=== PATIENT | male | born 1955 | race African-American/Black ===

== ENCOUNTER 2017-01-19 07:04 | Inpatient (IN) | payer OTHER ==
[~2017-01-19] VITALS: Ht 180.3 cm; Wt 84.8 kg
[~2017-01-19 07:04] MED LIST: ALBU18HF2 IH; ASPI-1035 PO; ATOR10TA PO; CARI350T PO; COR25 PO; FLUT1DIS5 IH; FURO20TA PO; Isosorb Dinit/Hydralazine Hcl PO; LEVIMIR SUBCUT; Lisinopril PO; METF-246 PO; METH4TAB17 PO; RIVA20TA PO; TIMO5DRO27 OP
[2017-01-19] MEDS ORDERED: MORPHINE SULFATE 4 MG/ML CPJ (NOT FOR IM USE) IV STA (07:21)
[2017-01-19] MEDS ORDERED: ONDANSETRON HCL 4MG/2ML VIAL IV STA (07:21)
[2017-01-19] MEDS ORDERED: NITROGLYCERIN OINT 1GM/INCH UDPKT TD ONE (07:30)
[2017-01-19] MEDS ORDERED: FUROSEMIDE 40MG/4ML VIAL IVP ONE (07:30)
[2017-01-19 07:40] LABS: BASOPHILS % 0.3 % (0.0-2.0); DIFFERENTIAL COMMENT 0; EOSINOPHILS % 1.1 % (0.0-5.0); HEMATOCRIT. 34.9 % (42.0-52.0); HEMOGLOBIN. 10.9 g/dL (14.0-18.0); LYMPHOCYTES % 21.6 % (20.0-50.0); MEAN CORPUSCULAR HEMOGLOBIN 23.3 pg (28.0-32.0); MEAN CORPUSCULAR HGB CONC 31.2 g/dL (31.0-37.0); MEAN CORPUSCULAR VOLUME 74.7 fL (80.0-94.0); MEAN PLATELET VOLUME 7.4 fl (7.4-10.4); MONOCYTES % 7.8 % (2.0-8.0); NEUTROPHILS % 69.2 % (40.0-76.0); PLATELET 321 x1000/uL (130-400); RED BLOOD CELL COUNT 4.67 mill/uL (4.7-6.1); RED CELL DISTRIBUTION WIDTH 20.3 % (11.6-14.6); WHITE BLOOD COUNT 7.5 x1000/uL (4.5-11.0)
[2017-01-19 07:44] LABS: INR 1.7; PARTIAL THROMBOPLASTIN TIME 29.8 sec (24.0-34.0); PROTHROMBIN TIME 17.3 sec
[2017-01-19 07:51] LABS: ALANINE AMINOTRANSFERASE 24 IU/L (13-61); ANION GAP 12; CALCIUM 8.5 mg/dL (8.5-10.1); CARBON DIOXIDE 32 mEq/L (21-32); CHLORIDE 99 mEq/L (98-107); CREATINE KINASE 49 IU/L (39-308); CREATINE KINASE MB FRACTION 0.9 ng/mL (0.5-3.6); INDEX HEMOLYSI 1 (1-3); INDEX ICTERIC 1 (1-4); INDEX LIPEMIC 1 (1-3); LIPASE 71 IU/L (73-393); TROPONIN I 0.03 ng/mL (0.00-0.04); UREA NITROGEN BLOOD 12 mg/dL (7-21); eGFR > 60 mL/min (>60)
[2017-01-19] MEDS ORDERED: LEVOFLOXACIN 500MG PREMIX 100 ML IV ONE (08:15)
[2017-01-19] MEDS ORDERED: POTASSIUM CHLORIDE 20MEQ TABLET SR PO ONE (08:15)
[2017-01-19 10:16] LABS: CLARITY URINE CLEAR (CLEAR); COLOR URINE YELLOW (YELLOW); GLUCOSE URINE TRACE (NEGATIVE); KETONES URINE NEGATIVE (NEGATIVE); LEUKOCYTE ESTERASE URINE NEGATIVE (NEGATIVE); NITRITE URINE NEGATIVE (NEGATIVE); OCCULT BLOOD URINE NEGATIVE (NEGATIVE); PH URINE 7.5 (4.5-8.0); PROTEIN URINE NEGATIVE (NEGATIVE)
[2017-01-19 10:18] LABS: BACTERIA URINE NONE SEEN; CALCIUM PHOSPHATE CRYSTALS UR NONE SEEN /lpf; RBC URINE NONE SEEN /hpf (0-2); SQUAMOUS EPITHELIAL CELL URINE NONE SEEN /lpf (RARE/1+); WAXY CASTS URINE NONE SEEN /lpf; WBC URINE NONE SEEN /hpf (0-2); YEAST URINE NONE SEEN
[2017-01-19] MEDS ORDERED: CARVEDILOL 25MG TABLET PO ONE (10:45)
[2017-01-19] MEDS ORDERED: ENOXAPARIN 40MG/0.4ML SYR SUBCUT SCH (11:30)
[2017-01-19] MEDS ORDERED: IPRATROPIUM/ALBUTEROL 0.5-3(2.5)MG/3ML NEB INH PRN (11:30)
[2017-01-19] MEDS ORDERED: ONDANSETRON HCL 4MG/2ML VIAL IV PRN (11:30)
[2017-01-19] MEDS ORDERED: MAGNESIUM/ALUMINUM HYDROXIDE/SIMETHICONE 30ML UDC PO PRN (11:30)
[2017-01-19] MEDS ORDERED: ACETAMINOPHEN 325MG TABLET PO PRN (11:30)
[2017-01-19] MEDS ORDERED: POTASSIUM CHLORIDE 20MEQ TABLET SR PO NR (11:30)
[2017-01-19] MEDS ORDERED: CLONIDINE 0.1MG TABLET PO PRN (11:30)
[2017-01-19 12:04] LABS: CHLORIDE 99 mEq/L (98-107); INDEX HEMOLYSI 1 (1-3); INDEX ICTERIC 1 (1-4); INDEX LIPEMIC 1 (1-3)
[2017-01-19 12:10] LABS: ANION GAP 12; CALCIUM 8.1 mg/dL (8.5-10.1); CARBON DIOXIDE 32 mEq/L (21-32); MAGNESIUM 1.5 mg/dL (1.8-2.4); UREA NITROGEN BLOOD 12 mg/dL (7-21); eGFR > 60 mL/min (>60)
[2017-01-19 13:40] LABS: *AMPHETAMINES SCREEN URINE PRESUMTIVE POSITIVE (NEGATIVE); *BARBITURATES SCREEN URINE NEGATIVE (NEGATIVE); *BENZODIAZEPINES SCREEN URINE NEGATIVE (NEGATIVE); *COCAINE SCREEN URINE NEGATIVE (NEGATIVE); CANNABINOID URINE SCREEN NEGATIVE (NEGATIVE); ECSTASY MDMA SCREEN URINE NEGATIVE (NEGATIVE); METHADONE URINE SCREEN NEGATIVE (NEGATIVE); OPIATES URINE SCREEN PRESUMTIVE POSITIVE (NEGATIVE); PHENCYCLIDINE URINE SCREEN NEGATIVE (NEGATIVE)
[2017-01-19 15:13] LABS: CREATINE KINASE MB FRACTION 1.2 ng/mL (0.5-3.6); TROPONIN I 0.03 ng/mL (0.00-0.04)
[2017-01-19 16:00] VITALS: BP 132/83
[2017-01-19] MEDS ORDERED: DEXTROSE 50% WATER 50ML SYRINGE IV PRN (16:00)
[2017-01-19] MEDS ORDERED: CARVEDILOL 12.5MG TABLET PO SCH (17:00)
[2017-01-19] MEDS ORDERED: FUROSEMIDE 40MG/4ML VIAL IV SCH (17:00)
[2017-01-19] MEDS: BLOOD SUGAR DIAGNOSTIC STRIP TEST SCH ×2 (17:17→21:00)
[2017-01-19] MEDS: INSULIN LISPRO 100 UNITS/ML SUBCUT SCH ×2 (17:32→22:02)
[2017-01-19 20:00] VITALS: BP 128/81
[2017-01-19 20:23] VITALS: BP 128/81
[2017-01-19] MEDS ORDERED: ENOXAPARIN 30MG/0.3ML SYR SUBCUT SCH (21:00)
[2017-01-19] MEDS ORDERED: LISINOPRIL 10MG TABLET PO SCH (21:00)
[2017-01-20] MEDS ORDERED: ASPIRIN 81MG EC TABLET PO SCH (09:00)
== END 2017-01-19 23:15 | disposition short-term general hospital (02) | DRG 194 ==
LOC: ER 07:31 → 8WST 08:01
PROVIDERS: ADMIT Internal Medicine; ATTEND Internal Medicine
DX: I11.0 Hypertensive heart disease with heart failure (principal); I27.2 Other secondary pulmonary hypertension; E11.9 Type 2 diabetes mellitus without complications; I50.23 Acute on chronic systolic (congestive) heart failure; F17.210 Nicotine dependence, cigarettes, uncomplicated; F15.90 Other stimulant use, unspecified, uncomplicated; H40.9 Unspecified glaucoma; J44.1 Chronic obstructive pulmonary disease with (acute) exacerbation; K40.90 Unilateral inguinal hernia, without obstruction or gangrene, not specified as recurrent; Z91.14 Patient's other noncompliance with medication regimen; Z79.84 Long term (current) use of oral hypoglycemic drugs; Z88.2 Allergy status to sulfonamides; Z79.899 Other long term (current) drug therapy; Z79.82 Long term (current) use of aspirin
CPT/HCPCS: 36415; 71010; 74176; 80048; 80053; 80305; 81001; 82550; 82553; 82962; 83605; 83690; 83735; 83880; 84484; 85025; 85610; 85730; 87040; 87086; 93005; 93970; 96374; 96375; 99291; J1650; J1815; J1940; J1956; J2270; J2405

== ENCOUNTER 2017-02-28 23:02 | Inpatient (IN) | payer OTHER ==
[~2017-02-28] VITALS: Ht 180.3 cm; Wt 101.6 kg
[~2017-02-28 23:02] MED LIST changes: +FURO-152 PO; -FURO20TA PO; -METF-246 PO; +METF10002 PO
[2017-03-01] VITALS (7 sets, daily range): BP systolic 123–167; BP diastolic 76–109
[2017-03-01] MEDS ORDERED: ASPIRIN 81MG TABLET PO ONE
[2017-03-01] MEDS ORDERED: NITROGLYCERIN 0.4MG TABLET SL SL PRN
[2017-03-01 00:24] LABS: BASOPHILS % 1.2 % (0.0-2.0); DIFFERENTIAL COMMENT 0; EOSINOPHILS % 1.9 % (0.0-5.0); HEMATOCRIT. 29.8 % (42.0-52.0); HEMOGLOBIN. 9.2 g/dL (14.0-18.0); LYMPHOCYTES % 29.7 % (20.0-50.0); MEAN CORPUSCULAR HGB CONC 30.7 g/dL (31.0-37.0); MEAN CORPUSCULAR VOLUME 71.7 fL (80.0-94.0); MEAN PLATELET VOLUME 7.3 fl (7.4-10.4); MONOCYTES % 10.4 % (2.0-8.0); NEUTROPHILS % 56.8 % (40.0-76.0); PLATELET 206 x1000/uL (130-400); RED BLOOD CELL COUNT 4.16 mill/uL (4.7-6.1); RED CELL DISTRIBUTION WIDTH 19.6 % (11.6-14.6); WHITE BLOOD COUNT 4.8 x1000/uL (4.5-11.0)
[2017-03-01 00:29] LABS: INR 1.5
[2017-03-01 00:38] LABS: ALANINE AMINOTRANSFERASE 14 IU/L (13-61); ALBUMIN 2.3 g/dL (3.4-5.0); ANION GAP 11; CALCIUM 6.9 mg/dL (8.5-10.1); CARBON DIOXIDE 30 mEq/L (21-32); CHLORIDE 106 mEq/L (98-107); ETHANOL BLOOD < 10 mg/dL; INDEX HEMOLYSI 1 (1-3); INDEX ICTERIC 1 (1-4); INDEX LIPEMIC 1 (1-3); NT PRO B-TYPE NATRIURETIC PEP 4179 pg/mL (5-125); TROPONIN I 0.02 ng/mL (0.00-0.04); UREA NITROGEN BLOOD 11 mg/dL (7-21); eGFR > 60 mL/min (>60)
[2017-03-01] MEDS ORDERED: POTASSIUM CHLORIDE 20MEQ TABLET SR PO ONE (01:00)
[2017-03-01] MEDS ORDERED: KCL 10MEQ/50ML PREMIX 100 ML IV SCH (01:00)
[2017-03-01] MEDS ORDERED: FUROSEMIDE 40MG/4ML VIAL IVP ONE (01:00)
[2017-03-01] MEDS ORDERED: ONDANSETRON HCL 4MG/2ML VIAL IV PRN (01:30)
[2017-03-01] MEDS ORDERED: ACETAMINOPHEN 325MG TABLET PO PRN (01:30)
[2017-03-01] MEDS ORDERED: MAGNESIUM/ALUMINUM HYDROXIDE/SIMETHICONE 30ML UDC PO PRN (01:30)
[2017-03-01 01:38] LABS: MAGNESIUM 1.3 mg/dL (1.8-2.4)
[2017-03-01] MEDS: CLONIDINE 0.1MG TABLET PO PRN ×2 (02:08→12:41)
[2017-03-01 02:11] LABS: CLARITY URINE CLEAR (CLEAR); COLOR URINE YELLOW (YELLOW); GLUCOSE URINE NEGATIVE (NEGATIVE); KETONES URINE NEGATIVE (NEGATIVE); LEUKOCYTE ESTERASE URINE NEGATIVE (NEGATIVE); NITRITE URINE NEGATIVE (NEGATIVE); OCCULT BLOOD URINE NEGATIVE (NEGATIVE); PH URINE >=9.0 (4.5-8.0); PROTEIN URINE NEGATIVE (NEGATIVE); SPECIFIC GRAVITY URINE 1.009 (1.005-1.030)
[2017-03-01 02:20] LABS: *AMPHETAMINES SCREEN URINE NEGATIVE (NEGATIVE); *BENZODIAZEPINES SCREEN URINE NEGATIVE (NEGATIVE); *COCAINE SCREEN URINE NEGATIVE (NEGATIVE); CANNABINOID URINE SCREEN NEGATIVE (NEGATIVE); ECSTASY MDMA SCREEN URINE NEGATIVE (NEGATIVE); METHADONE URINE SCREEN NEGATIVE (NEGATIVE); OPIATES URINE SCREEN NEGATIVE (NEGATIVE); PHENCYCLIDINE URINE SCREEN NEGATIVE (NEGATIVE)
[2017-03-01 03:25] LABS: *BARBITURATES SCREEN URINE NEGATIVE (NEGATIVE)
[2017-03-01] MEDS ORDERED: OXYC10TA71 PO (04:51)
[2017-03-01] MEDS ORDERED: DEXTROSE 50% WATER 50ML SYRINGE IV PRN (06:15)
[2017-03-01] MEDS: BLOOD SUGAR DIAGNOSTIC STRIP TEST SCH ×4 (06:18→20:57)
[2017-03-01] MEDS: INSULIN LISPRO 100 UNITS/ML SUBCUT SCH ×4 (06:28→21:04)
[2017-03-01 06:59] LABS: BASOPHILS % 1.2 % (0.0-2.0); DIFFERENTIAL COMMENT 0; HEMOGLOBIN. 9.7 g/dL (14.0-18.0); LYMPHOCYTES % 27.4 % (20.0-50.0); MEAN CORPUSCULAR HEMOGLOBIN 22.4 pg (28.0-32.0); MEAN CORPUSCULAR HGB CONC 31.4 g/dL (31.0-37.0); MEAN CORPUSCULAR VOLUME 71.2 fL (80.0-94.0); MEAN PLATELET VOLUME 7.7 fl (7.4-10.4); MONOCYTES % 11.4 % (2.0-8.0); PLATELET 226 x1000/uL (130-400); RED BLOOD CELL COUNT 4.35 mill/uL (4.7-6.1); RED CELL DISTRIBUTION WIDTH 19.8 % (11.6-14.6); WHITE BLOOD COUNT 5.4 x1000/uL (4.5-11.0)
[2017-03-01 07:27] LABS: CHLORIDE 100 mEq/L (98-107); INDEX HEMOLYSI 1 (1-3); INDEX ICTERIC 1 (1-4); INDEX LIPEMIC 1 (1-3)
[2017-03-01 07:52] LABS: ANION GAP 15; CALCIUM 8.6 mg/dL (8.5-10.1); CARBON DIOXIDE 30 mEq/L (21-32); CREATINE KINASE 57 IU/L (39-308); CREATINE KINASE MB FRACTION < 0.5 ng/mL (0.5-3.6); HDL CHOLESTEROL 34 mg/dL (40-59); LDL CHOLESTEROL 78 mg/dL (5-100); TRIGLYCERIDE 51 mg/dL (0-150); UREA NITROGEN BLOOD 11 mg/dL (7-21); eGFR > 60 mL/min (>60)
[2017-03-01] MEDS: FUROSEMIDE 40MG/4ML VIAL IV SCH ×2 (08:51→17:08)
[2017-03-01] MEDS: LISINOPRIL 20MG TABLET PO SCH (08:51)
[2017-03-01] MEDS ORDERED: ENOXAPARIN 40MG/0.4ML SYR SUBCUT SCH (09:00)
[2017-03-01] MEDS ORDERED: MAGNESIUM 2 G PREMIX 50 ML IV SCH (09:00)
[2017-03-01] MEDS: IPRATROPIUM/ALBUTEROL 0.5-3(2.5)MG/3ML NEB INH PRN (09:46)
[2017-03-01] MEDS ORDERED: CARISOPRODOL 350 MG TABLET PO PRN ×2 (12:45→13:45)
[2017-03-01] MEDS ORDERED: FLUTICASONE IH SCH (12:45)
[2017-03-01] MEDS ORDERED: SALMETEROL IH SCH (12:45)
[2017-03-01] MEDS: CLONIDINE 0.1MG TABLET PO SCH ×2 (13:15→21:01)
[2017-03-01] MEDS ORDERED: POTASSIUM CHLORIDE 20MEQ TABLET SR PO NR (13:15)
[2017-03-01] MEDS: SPIRONOLACTONE 25MG TABLET PO SCH (13:35)
[2017-03-01] MEDS: ISOSORB DINIT/HYDRALAZINE HCL 20/37.5MG TABLET PO SCH ×2 (13:36→22:05)
[2017-03-01] MEDS: CARVEDILOL 25MG TABLET PO SCH ×2 (13:36→21:01)
[2017-03-01] MEDS ORDERED: ISOSORB DINIT PO SCH (14:00)
[2017-03-01] MEDS ORDERED: [UNRECOGNIZED DRUG - OTHER] PO SCH (14:00)
[2017-03-01] MEDS: METFORMIN HCL 500MG TABLET PO SCH (18:34)
[2017-03-01 20:59] LABS: CREATINE KINASE 56 IU/L (39-308); CREATINE KINASE MB FRACTION < 0.5 ng/mL (0.5-3.6); INDEX HEMOLYSI 1 (1-3)
[2017-03-01] MEDS ORDERED: [UNRECOGNIZED DRUG - OTHER] PO SCH (21:00)
[2017-03-01] MEDS: ATORVASTATIN CALCIUM 10MG TABLET PO SCH (21:01)
[2017-03-02 00:22] VITALS: BP 96/52
[2017-03-02 04:08] VITALS: BP 126/81
[2017-03-02] MEDS: BLOOD SUGAR DIAGNOSTIC STRIP TEST SCH ×4 (06:12→20:49)
[2017-03-02] MEDS: ISOSORB DINIT/HYDRALAZINE HCL 20/37.5MG TABLET PO SCH ×3 (06:20→22:56)
[2017-03-02] MEDS: INSULIN LISPRO 100 UNITS/ML SUBCUT SCH ×4 (06:24→21:22)
[2017-03-02 06:54] LABS: BASOPHILS % 0.9 % (0.0-2.0); DIFFERENTIAL COMMENT 0; EOSINOPHILS % 2.2 % (0.0-5.0); HEMATOCRIT. 29.9 % (42.0-52.0); HEMOGLOBIN. 9.1 g/dL (14.0-18.0); LYMPHOCYTES % 26.7 % (20.0-50.0); MEAN CORPUSCULAR HGB CONC 30.5 g/dL (31.0-37.0); MEAN PLATELET VOLUME 7.8 fl (7.4-10.4); MONOCYTES % 10.4 % (2.0-8.0); NEUTROPHILS % 59.8 % (40.0-76.0); PLATELET 209 x1000/uL (130-400); RED BLOOD CELL COUNT 4.15 mill/uL (4.7-6.1); RED CELL DISTRIBUTION WIDTH 19.5 % (11.6-14.6); WHITE BLOOD COUNT 6.1 x1000/uL (4.5-11.0)
[2017-03-02 07:15] LABS: ANION GAP 13; CALCIUM 8.7 mg/dL (8.5-10.1); CARBON DIOXIDE 31 mEq/L (21-32); CHLORIDE 100 mEq/L (98-107); INDEX HEMOLYSI 1 (1-3); INDEX ICTERIC 1 (1-4); INDEX LIPEMIC 1 (1-3); UREA NITROGEN BLOOD 20 mg/dL (7-21); eGFR > 60 mL/min (>60)
[2017-03-02 08:00] VITALS: BP 114/68
[2017-03-02] MEDS: CLONIDINE 0.1MG TABLET PO SCH ×2 (08:27→20:48)
[2017-03-02] MEDS: LISINOPRIL 20MG TABLET PO SCH (08:27)
[2017-03-02] MEDS: METFORMIN HCL 500MG TABLET PO SCH ×2 (08:40→17:47)
[2017-03-02] MEDS: FUROSEMIDE 40MG/4ML VIAL IV SCH ×2 (08:40→16:12)
[2017-03-02] MEDS: TIMOLOL MALEATE 0.5% OPHTH DROPS 5ML OP SCH ×2 (08:41→16:12)
[2017-03-02] MEDS: SPIRONOLACTONE 25MG TABLET PO SCH (08:42)
[2017-03-02] MEDS: CARVEDILOL 25MG TABLET PO SCH ×2 (08:43→20:56)
[2017-03-02] MEDS: ASPIRIN 81MG EC TABLET PO SCH (08:44)
[2017-03-02 12:00] VITALS: BP 117/78
[2017-03-02] MEDS: ALBUTEROL (0.083%) 2.5MG/3ML NEB HHN SCH ×2 (13:52→20:32)
[2017-03-02] MEDS: METHYLPREDNISOLONE SOD SUCC 40 MG/ML VIAL IV SCH ×2 (15:15→22:54)
[2017-03-02 16:00] VITALS: BP 130/80
[2017-03-02] MEDS: RIVAROXABAN 20 MG TABLET PO SCH (16:12)
[2017-03-02 20:00] VITALS: BP 141/87
[2017-03-02] MEDS ORDERED: HYDROCODONE/ACETAMINOPHEN 5/325MG TABLET PO PRN (20:00)
[2017-03-02] MEDS: BUDESONIDE 0.5MG/2ML NEB HHN SCH (20:32)
[2017-03-02] MEDS: ATORVASTATIN CALCIUM 10MG TABLET PO SCH (20:54)
[2017-03-03] VITALS: BP 105/49
[2017-03-03] MEDS: ALBUTEROL (0.083%) 2.5MG/3ML NEB HHN SCH ×3 (00:53→20:12)
[2017-03-03 04:00] VITALS: BP 159/76
[2017-03-03] MEDS: METHYLPREDNISOLONE SOD SUCC 40 MG/ML VIAL IV SCH ×3 (05:08→21:31)
[2017-03-03] MEDS: ISOSORB DINIT/HYDRALAZINE HCL 20/37.5MG TABLET PO SCH ×3 (05:47→21:51)
[2017-03-03] MEDS: BLOOD SUGAR DIAGNOSTIC STRIP TEST SCH ×4 (06:27→20:46)
[2017-03-03] MEDS: INSULIN LISPRO 100 UNITS/ML SUBCUT SCH ×4 (06:56→20:40)
[2017-03-03] MEDS: BUDESONIDE 0.5MG/2ML NEB HHN SCH ×2 (07:45→20:13)
[2017-03-03 08:00] VITALS: BP 120/73
[2017-03-03] MEDS: METFORMIN HCL 500MG TABLET PO SCH ×2 (08:34→16:41)
[2017-03-03] MEDS: FUROSEMIDE 40MG/4ML VIAL IV SCH ×2 (08:34→16:41)
[2017-03-03] MEDS: ASPIRIN 81MG EC TABLET PO SCH (08:35)
[2017-03-03] MEDS: LISINOPRIL 20MG TABLET PO SCH (08:35)
[2017-03-03] MEDS: CLONIDINE 0.1MG TABLET PO SCH ×2 (08:35→20:46)
[2017-03-03] MEDS: TIMOLOL MALEATE 0.5% OPHTH DROPS 5ML OP SCH ×2 (08:36→16:40)
[2017-03-03] MEDS: SPIRONOLACTONE 50MG TABLET PO SCH (08:36)
[2017-03-03] MEDS: CARVEDILOL 25MG TABLET PO SCH ×2 (08:36→20:46)
[2017-03-03 12:00] VITALS: BP 130/74
[2017-03-03] MEDS ORDERED: VANCOMYCIN 2,000 MG in DEXT 5% WATER 500 ML IV SCH (13:00)
[2017-03-03 16:00] VITALS: BP 121/69
[2017-03-03] MEDS: RIVAROXABAN 20 MG TABLET PO SCH (16:41)
[2017-03-03 20:00] VITALS: BP 132/74
[2017-03-03] MEDS: ATORVASTATIN CALCIUM 10MG TABLET PO SCH (20:40)
[2017-03-03] MEDS: VANCOMYCIN 1250MG in DEXTROSE 5% WATER 250ML IV SCH (21:31)
[2017-03-03] MEDS: INSULIN DETEMIR UD 100 UNITS/ML SYR SUBCUT SCH (21:53)
[2017-03-04] VITALS: BP 130/70
[2017-03-04] MEDS: ALBUTEROL (0.083%) 2.5MG/3ML NEB HHN SCH ×4 (02:34→20:58)
[2017-03-04 04:00] VITALS: BP 121/69
[2017-03-04] MEDS: ISOSORB DINIT/HYDRALAZINE HCL 20/37.5MG TABLET PO SCH ×3 (05:00→21:44)
[2017-03-04] MEDS: METHYLPREDNISOLONE SOD SUCC 40 MG/ML VIAL IV SCH ×3 (05:01→21:44)
[2017-03-04] MEDS: BLOOD SUGAR DIAGNOSTIC STRIP TEST SCH ×4 (06:31→21:19)
[2017-03-04 06:48] LABS: ANION GAP 13; CALCIUM 8.6 mg/dL (8.5-10.1); CARBON DIOXIDE 28 mEq/L (21-32); CHLORIDE 99 mEq/L (98-107); INDEX HEMOLYSI 1 (1-3); INDEX ICTERIC 1 (1-4); INDEX LIPEMIC 1 (1-3); UREA NITROGEN BLOOD 31 mg/dL (7-21); eGFR > 60 mL/min (>60)
[2017-03-04] MEDS: INSULIN LISPRO 100 UNITS/ML SUBCUT SCH ×4 (06:48→21:46)
[2017-03-04 07:31] LABS: HEMATOCRIT. 30.2 % (42.0-52.0); MEAN CORPUSCULAR HEMOGLOBIN 21.4 pg (28.0-32.0); MEAN CORPUSCULAR HGB CONC 29.8 g/dL (31.0-37.0); MEAN CORPUSCULAR VOLUME 71.7 fL (80.0-94.0); MEAN PLATELET VOLUME 8.5 fl (7.4-10.4); PLATELET 224 x1000/uL (130-400); RED BLOOD CELL COUNT 4.22 mill/uL (4.7-6.1); RED CELL DISTRIBUTION WIDTH 19.6 % (11.6-14.6)
[2017-03-04 08:00] VITALS: BP 137/88
[2017-03-04] MEDS: CLONIDINE 0.1MG TABLET PO SCH ×2 (08:50→21:00)
[2017-03-04] MEDS: CARVEDILOL 25MG TABLET PO SCH ×2 (08:50→21:19)
[2017-03-04] MEDS: ASPIRIN 81MG EC TABLET PO SCH (08:50)
[2017-03-04] MEDS: SPIRONOLACTONE 50MG TABLET PO SCH (08:50)
[2017-03-04] MEDS: METFORMIN HCL 500MG TABLET PO SCH ×2 (08:50→17:39)
[2017-03-04] MEDS: LISINOPRIL 20MG TABLET PO SCH ×2 (08:51→21:19)
[2017-03-04] MEDS: FUROSEMIDE 40MG/4ML VIAL IV SCH ×2 (08:51→17:39)
[2017-03-04] MEDS: VANCOMYCIN 1250MG in DEXTROSE 5% WATER 250ML IV SCH ×2 (08:51→21:18)
[2017-03-04 08:56] LABS: DIFFERENTIAL COMMENT 1
[2017-03-04] MEDS: INSULIN DETEMIR UD 100 UNITS/ML SYR SUBCUT SCH ×2 (09:52→21:45)
[2017-03-04] MEDS: TIMOLOL MALEATE 0.5% OPHTH DROPS 5ML OP SCH ×2 (09:52→17:38)
[2017-03-04] MEDS: BUDESONIDE 0.5MG/2ML NEB HHN SCH (10:16)
[2017-03-04 12:00] VITALS: BP 109/59
[2017-03-04 13:01] LABS: ANISOCYTOSIS 2+; HYPOCHROMASIA 2+; PLATELET ESTIMATE NORMAL
[2017-03-04 16:00] VITALS: BP 136/79
[2017-03-04] MEDS: IPRATROPIUM/ALBUTEROL 0.5-3(2.5)MG/3ML NEB INH PRN (17:30)
[2017-03-04] MEDS: RIVAROXABAN 20 MG TABLET PO SCH (17:38)
[2017-03-04 20:00] VITALS: BP 139/84
[2017-03-04] MEDS: ATORVASTATIN CALCIUM 10MG TABLET PO SCH (21:18)
[2017-03-05] VITALS: BP 113/65
[2017-03-05] MEDS: ALBUTEROL (0.083%) 2.5MG/3ML NEB HHN SCH ×3 (02:10→12:57)
[2017-03-05 04:00] VITALS: BP 124/69
[2017-03-05] MEDS: METHYLPREDNISOLONE SOD SUCC 40 MG/ML VIAL IV SCH ×2 (06:10→13:51)
[2017-03-05] MEDS: ISOSORB DINIT/HYDRALAZINE HCL 20/37.5MG TABLET PO SCH ×2 (06:10→14:19)
[2017-03-05] MEDS: BLOOD SUGAR DIAGNOSTIC STRIP TEST SCH ×2 (06:11→12:40)
[2017-03-05] MEDS: INSULIN LISPRO 100 UNITS/ML SUBCUT SCH ×2 (06:52→12:40)
[2017-03-05] MEDS: METFORMIN HCL 500MG TABLET PO SCH (06:53)
[2017-03-05 07:02] LABS: HEMOGLOBIN. 10.1 g/dL (14.0-18.0); MEAN CORPUSCULAR HEMOGLOBIN 21.7 pg (28.0-32.0); MEAN CORPUSCULAR HGB CONC 30.8 g/dL (31.0-37.0); MEAN CORPUSCULAR VOLUME 70.7 fL (80.0-94.0); MEAN PLATELET VOLUME 7.8 fl (7.4-10.4); PLATELET 230 x1000/uL (130-400); RED BLOOD CELL COUNT 4.67 mill/uL (4.7-6.1); RED CELL DISTRIBUTION WIDTH 19.8 % (11.6-14.6); WHITE BLOOD COUNT 13.7 x1000/uL (4.5-11.0)
[2017-03-05 07:11] LABS: DIFFERENTIAL COMMENT 1
[2017-03-05 07:37] LABS: INDEX HEMOLYSI 1 (1-3); INDEX ICTERIC 1 (1-4); INDEX LIPEMIC 1 (1-3)
[2017-03-05 07:43] LABS: HAPTOGLOBIN 153 mg/dL (30-200); IRON 18 ug/dL (50-175); TOTAL IRON BINDING CAPACITY 396 ug/dL (250-450)
[2017-03-05 07:54] LABS: ANION GAP 13; CALCIUM 8.2 mg/dL (8.5-10.1); CARBON DIOXIDE 29 mEq/L (21-32); CHLORIDE 97 mEq/L (98-107); INDEX HEMOLYSI 1 (1-3); INDEX ICTERIC 1 (1-4); INDEX LIPEMIC 1 (1-3); UREA NITROGEN BLOOD 34 mg/dL (7-21); eGFR > 60 mL/min (>60)
[2017-03-05 08:00] VITALS: BP 134/89
[2017-03-05] MEDS: FUROSEMIDE 40MG/4ML VIAL IV SCH (09:28)
[2017-03-05] MEDS: CARVEDILOL 25MG TABLET PO SCH (09:29)
[2017-03-05] MEDS: LISINOPRIL 20MG TABLET PO SCH (09:29)
[2017-03-05] MEDS: SPIRONOLACTONE 50MG TABLET PO SCH (09:29)
[2017-03-05] MEDS: ASPIRIN 81MG EC TABLET PO SCH (09:29)
[2017-03-05] MEDS: VANCOMYCIN 1250MG in DEXTROSE 5% WATER 250ML IV SCH (09:30)
[2017-03-05] MEDS: TIMOLOL MALEATE 0.5% OPHTH DROPS 5ML OP SCH (09:30)
[2017-03-05] MEDS: INSULIN DETEMIR UD 100 UNITS/ML SYR SUBCUT SCH (09:31)
[2017-03-05] MEDS: CLONIDINE 0.1MG TABLET PO SCH (10:32)
[2017-03-05 10:35] LABS: ANISOCYTOSIS 1+; PLATELET ESTIMATE NORMAL
[2017-03-05 10:36] LABS: HYPOCHROMASIA 2+
[2017-03-05 12:00] VITALS: BP 127/81
[2017-03-05 13:58] VITALS: BP 127/81
[2017-03-05] MEDS ORDERED: FERROUS SULFATE 325MG TABLET PO SCH (17:00)
== END 2017-03-05 16:30 | disposition home or self-care (01) | DRG 194 ==
LOC: ER 23:03 → 8WST 03-01 00:58
PROVIDERS: ADMIT Internal Medicine; ATTEND Internal Medicine
DX: I11.0 Hypertensive heart disease with heart failure (principal); I27.2 Other secondary pulmonary hypertension; R78.81 Bacteremia; J44.1 Chronic obstructive pulmonary disease with (acute) exacerbation; I08.1 Rheumatic disorders of both mitral and tricuspid valves; E11.9 Type 2 diabetes mellitus without complications; B96.89 Other specified bacterial agents as the cause of diseases classified elsewhere; J98.11 Atelectasis; I50.43 Acute on chronic combined systolic (congestive) and diastolic (congestive) heart failure; E78.5 Hyperlipidemia, unspecified; F12.90 Cannabis use, unspecified, uncomplicated; D50.9 Iron deficiency anemia, unspecified; H40.9 Unspecified glaucoma; I25.10 Atherosclerotic heart disease of native coronary artery without angina pectoris; I25.5 Ischemic cardiomyopathy; F15.90 Other stimulant use, unspecified, uncomplicated; N48.22 Cellulitis of corpus cavernosum and penis; F17.210 Nicotine dependence, cigarettes, uncomplicated; Z88.2 Allergy status to sulfonamides; Z91.19 Patient's noncompliance with other medical treatment and regimen; I25.2 Old myocardial infarction; Z91.14 Patient's other noncompliance with medication regimen
CPT/HCPCS: 36415; 71010; 80048; 80053; 80061; 80202; 80305; 81003; 82550; 82553; 82728; 82962; 83010; 83540; 83550; 83735; 83880; 84484; 85025; 85379; 85610; 87040; 93005; 93306; 93970; 94640; 96365; 96366; 96375; 97116; 97162; 97535; 99291; G0482; J1650; J1815; J1940; J2920; J3370; J3475; J3480; J7040; J7060; J7611; J7620; J7626

== ENCOUNTER 2017-07-26 19:06 | Inpatient (IN) | payer MEDICAID ==
[~2017-07-26] VITALS: Ht 182.9 cm; Wt 74.4 kg
[~2017-07-26 19:06] MED LIST changes: -ALBU18HF2 IH; -ASPI-1035 PO; -CARI350T PO; -FLUT1DIS5 IH; -FURO-152 PO; +IOHEXOL-350 100 ML BOTTLE ONE; -LEVIMIR SUBCUT; -METF10002 PO; -METH4TAB17 PO; +SODIUM CHLORIDE 0.9% 10ML VIAL ONE; -TIMO5DRO27 OP
[2017-07-26] MEDS ORDERED: NALOXONE HCL 0.4 MG/ML 1ML VIAL IV STA (19:39)
[2017-07-26 20:00] LABS: EOSINOPHILS % 0.8 % (0.0-5.0); HEMATOCRIT. 41.2 % (42.0-52.0); HEMOGLOBIN. 13.3 g/dL (14.0-18.0); LYMPHOCYTES % 18.8 % (20.0-50.0); MEAN CORPUSCULAR HEMOGLOBIN 27.1 pg (28.0-32.0); MEAN CORPUSCULAR VOLUME 83.8 fL (80.0-94.0); MEAN PLATELET VOLUME 7.7 fl (7.4-10.4); MONOCYTES % 10.1 % (2.0-8.0); NEUTROPHILS % 69.3 % (40.0-76.0); PLATELET 215 x1000/uL (130-400); RED BLOOD CELL COUNT 4.91 mill/uL (4.7-6.1); RED CELL DISTRIBUTION WIDTH 20.1 % (11.6-14.6)
[2017-07-26 20:06] LABS: INR 1.2; PROTHROMBIN TIME 12.4 sec (9.4-11.6)
[2017-07-26 20:08] LABS: AMMONIA 12 uMol/L (<32)
[2017-07-26 20:13] LABS: CARBON DIOXIDE 31 mEq/L (21-32); CHLORIDE 102 mEq/L (98-107); CREATINE KINASE 77 IU/L (39-308); ETHANOL BLOOD < 10 mg/dL
[2017-07-26 20:13] LABS: CLARITY URINE CLEAR (CLEAR); COLOR URINE YELLOW (YELLOW); GLUCOSE URINE 1+ (NEGATIVE); KETONES URINE TRACE (NEGATIVE); LEUKOCYTE ESTERASE URINE NEGATIVE (NEGATIVE); NITRITE URINE NEGATIVE (NEGATIVE); OCCULT BLOOD URINE NEGATIVE (NEGATIVE); PH URINE 6.5 (4.5-8.0); PROTEIN URINE 2+ (NEGATIVE); SPECIFIC GRAVITY URINE 1.026 (1.005-1.030)
[2017-07-26 20:28] LABS: *AMPHETAMINES SCREEN URINE PRESUMTIVE POSITIVE (NEGATIVE); *BARBITURATES SCREEN URINE NEGATIVE (NEGATIVE); *BENZODIAZEPINES SCREEN URINE NEGATIVE (NEGATIVE); *COCAINE SCREEN URINE NEGATIVE (NEGATIVE); CANNABINOID URINE SCREEN PRESUMTIVE POSITIVE (NEGATIVE); METHADONE URINE SCREEN NEGATIVE (NEGATIVE); OPIATES URINE SCREEN NEGATIVE (NEGATIVE); PHENCYCLIDINE URINE SCREEN PRESUMTIVE POSITIVE (NEGATIVE)
[2017-07-26] MEDS ORDERED: ASPIRIN 325MG EC TABLET PO ONE (21:15)
[2017-07-26] MEDS ORDERED: ASPIRIN 300MG SUPP PR ONE (21:45)
[2017-07-26 23:45] VITALS: BP 183/106
[2017-07-27] VITALS (40 sets, daily range): BP systolic 91–196; BP diastolic 52–116
[2017-07-27] MEDS: DEXT 5%/0.45% NACL KCL 20MEQ/L 1,000 ML IV SCH ×2 (05:25→15:57)
[2017-07-27] MEDS: HYDRALAZINE 20MG/ML VIAL IV PRN ×3 (05:32→18:01)
[2017-07-27] MEDS ORDERED: PANTOPRAZOLE SODIUM 40 MG/VIAL IV SCH (09:00)
[2017-07-27] MEDS: AMLODIPINE 5MG TABLET PO SCH (09:45)
[2017-07-27] MEDS: FAMOTIDINE 20MG/2ML VIAL IV SCH ×2 (10:17→21:14)
[2017-07-27] MEDS: IPRATROPIUM/ALBUTEROL 0.5-3(2.5)MG/3ML NEB HHN SCH ×2 (16:35→20:17)
[2017-07-27] MEDS ORDERED: ETOMIDATE 2MG/ML 10ML VIAL IV ONE (17:05)
[2017-07-27] MEDS ORDERED: SUCCINYLCHOLINE CHLORIDE 200MG/10ML VIAL IV ONE (17:05)
[2017-07-27] MEDS ORDERED: NICARDIPINE 100 MG in SODIUM CHLORIDE 0.9% 60 ML IV PRN (17:30)
[2017-07-27] MEDS: PROPOFOL 10MG/ML 100ML 100 ML IV PRN ×2 (17:57→21:59)
[2017-07-27] MEDS ORDERED: ENOXAPARIN 40MG/0.4ML SYR SUBCUT SCH (18:00)
[2017-07-27 18:19] LABS: BG CARBOXYHEMOGLOBIN 1.1 % (0.5-1.5); BG DEOXYHEMOGLOBIN 2.2 % (0.0-5.0); BG FRACTION INSPIRED OXYGEN 40; BG HCO3 ACT 22.6 mmol/L (22.0-26.0); BG METHEMOGLOBIN 0.3 % (0.0-1.5); BG OXYGEN SATURATION 97.8 % (92.0-98.5); BG OXYHEMOGLOBIN 96.4 % (94.0-97.0); BG PCO2 34.8 mmHg (35.0-45.0); BG PH 7.431 (7.350-7.450); BG PO2 100.5 mmHg (75.0-100.0); BG SAMPLE SITE RIGHT RADIAL; BG TIDAL VOLUME(mL) 500 mL; BG TOTAL HEMOGLOBIN 14.1 g/dL (12.0-18.0); BG VENT MODE VENT - A/C; BG VENT RATE 12 set
[2017-07-27] MEDS: DEXAMETHASONE 10 MG/ML VIAL IV SCH (18:25)
[2017-07-27] MEDS ORDERED: PHENYTOIN SODIUM 1,000 MG in SODIUM CHLORIDE 0.9% 100 ML IV NR (18:30)
[2017-07-28] VITALS (68 sets, daily range): BP systolic 67–147; BP diastolic 40–93
[2017-07-28] MEDS: DEXT 5%/0.45% NACL KCL 20MEQ/L 1,000 ML IV SCH ×3 (01:02→21:06)
[2017-07-28] MEDS: DEXAMETHASONE 10 MG/ML VIAL IV SCH ×4 (01:02→17:47)
[2017-07-28] MEDS: IPRATROPIUM/ALBUTEROL 0.5-3(2.5)MG/3ML NEB HHN SCH ×4 (01:28→20:31)
[2017-07-28 07:10] LABS: BG BASE EXCESS -1.8 mmol/L (-2.0-2.0); BG CARBOXYHEMOGLOBIN 0.9 % (0.5-1.5); BG DEOXYHEMOGLOBIN 2.4 % (0.0-5.0); BG HCO3 ACT 21.3 mmol/L (22.0-26.0); BG METHEMOGLOBIN 0.3 % (0.0-1.5); BG OXYGEN SATURATION 97.6 % (92.0-98.5); BG OXYHEMOGLOBIN 96.4 % (94.0-97.0); BG PCO2 31.6 mmHg (35.0-45.0); BG PH 7.446 (7.350-7.450); BG PO2 96.3 mmHg (75.0-100.0); BG SAMPLE SITE RIGHT RADIAL; BG TIDAL VOLUME(mL) 500 mL; BG TOTAL HEMOGLOBIN 14.4 g/dL (12.0-18.0); BG VENT MODE VENT - A/C; BG VENT RATE 12 set
[2017-07-28] MEDS: AMLODIPINE 5MG TABLET PO SCH (09:00)
[2017-07-28 09:47] LABS: CARBON DIOXIDE 24 mEq/L (21-32); CHLORIDE 101 mEq/L (98-107)
[2017-07-28] MEDS: FAMOTIDINE 20MG/2ML VIAL IV SCH ×2 (09:50→20:29)
[2017-07-28] MEDS: PROPOFOL 10MG/ML 100ML 100 ML IV PRN ×2 (09:53→17:57)
[2017-07-28] MEDS ORDERED: PHENYLEPHRINE 40 MG in DEXT 5% WATER 246 ML IV PRN (10:00)
[2017-07-29] VITALS (39 sets, daily range): BP systolic 115–188; BP diastolic 62–96
[2017-07-29] MEDS: DEXAMETHASONE 10 MG/ML VIAL IV SCH ×5 (00:46→23:50)
[2017-07-29] MEDS: IPRATROPIUM/ALBUTEROL 0.5-3(2.5)MG/3ML NEB HHN SCH ×4 (02:12→20:05)
[2017-07-29] MEDS: AMLODIPINE 5MG TABLET PO SCH (08:26)
[2017-07-29] MEDS: FAMOTIDINE 20MG/2ML VIAL IV SCH ×2 (08:29→21:15)
[2017-07-29] MEDS: DEXT 5%/0.45% NACL KCL 20MEQ/L 1,000 ML IV SCH ×2 (08:29→17:51)
[2017-07-29] MEDS ORDERED: DEXTROSE 50% WATER 50ML SYRINGE IV PRN (15:30)
[2017-07-29] MEDS: PROPOFOL 10MG/ML 100ML 100 ML IV PRN (16:23)
[2017-07-29] MEDS ORDERED: INSULIN LISPRO 100 UNITS/ML SUBCUT SCH (17:00)
[2017-07-29] MEDS: INSULIN LISPRO 100 UNITS/ML SUBCUT SCH ×2 (17:52→23:51)
[2017-07-29] MEDS: BLOOD SUGAR DIAGNOSTIC STRIP TEST SCH ×2 (17:53→23:52)
[2017-07-29] MEDS ORDERED: PHENYTOIN SODIUM 100MG/2ML VIAL IV SCH (21:00)
[2017-07-29] MEDS: PHENYTOIN SODIUM 300 MG in SODIUM CHLORIDE 0.9% 100 ML IV SCH (21:15)
[2017-07-30] VITALS (43 sets, daily range): BP systolic 97–159; BP diastolic 50–97
[2017-07-30] MEDS ORDERED: PROPOFOL 10MG/ML 100ML 100 ML IV PRN (01:33)
[2017-07-30] MEDS: IPRATROPIUM/ALBUTEROL 0.5-3(2.5)MG/3ML NEB HHN SCH ×4 (02:22→20:31)
[2017-07-30] MEDS: DEXAMETHASONE 10 MG/ML VIAL IV SCH ×3 (05:16→17:55)
[2017-07-30] MEDS: BLOOD SUGAR DIAGNOSTIC STRIP TEST SCH ×3 (05:16→17:53)
[2017-07-30] MEDS: DEXT 5%/0.45% NACL KCL 20MEQ/L 1,000 ML IV SCH (05:16)
[2017-07-30] MEDS: INSULIN LISPRO 100 UNITS/ML SUBCUT SCH ×3 (05:17→17:56)
[2017-07-30 06:15] LABS: HEMATOCRIT 39.3 % (42.0-52.0); HEMOGLOBIN 12.8 g/dL (14.0-18.0); MEAN CORPUSCULAR HEMOGLOBIN 27.3 pg (28.0-32.0); PLATELET 205 x1000/uL (130-400); RED BLOOD CELL COUNT 4.67 mill/uL (4.7-6.1); RED CELL DISTRIBUTION WIDTH 18.9 % (11.6-14.6)
[2017-07-30 06:40] LABS: CARBON DIOXIDE 24 mEq/L (21-32); CHLORIDE 103 mEq/L (98-107)
[2017-07-30] MEDS: AMLODIPINE 5MG TABLET PO SCH (08:18)
[2017-07-30] MEDS: FAMOTIDINE 20MG/2ML VIAL IV SCH ×2 (08:18→20:59)
[2017-07-30 12:14] LABS: BG BASE EXCESS 1.8 mmol/L (-2.0-2.0); BG CARBOXYHEMOGLOBIN 0.7 % (0.5-1.5); BG DEOXYHEMOGLOBIN 3.7 % (0.0-5.0); BG HCO3 ACT 25.7 mmol/L (22.0-26.0); BG METHEMOGLOBIN 0.4 % (0.0-1.5); BG OXYGEN SATURATION 96.3 % (92.0-98.5); BG OXYHEMOGLOBIN 95.2 % (94.0-97.0); BG PCO2 37.8 mmHg (35.0-45.0); BG PO2 80.4 mmHg (75.0-100.0); BG SAMPLE SITE RIGHT BRACHIAL; BG TIDAL VOLUME(mL) 500 mL; BG TOTAL HEMOGLOBIN 14.8 g/dL (12.0-18.0); BG VENT MODE VENT - A/C; BG VENT RATE 12 set
[2017-07-30] MEDS: CEFEPIME 1,000 MG in DEXTROSE 5% WATER 50 ML IV SCH (13:41)
[2017-07-30] MEDS: METRONIDAZOLE 500 MG PREMIX 100 ML IV SCH ×2 (14:30→21:06)
[2017-07-30] MEDS: LORAZEPAM 2MG/ML CPJ IV PRN (20:59)
[2017-07-30] MEDS: PHENYTOIN SODIUM 300 MG in SODIUM CHLORIDE 0.9% 100 ML IV SCH (21:27)
[2017-07-31] VITALS (36 sets, daily range): BP systolic 95–146; BP diastolic 54–93
[2017-07-31] MEDS: BLOOD SUGAR DIAGNOSTIC STRIP TEST SCH ×5 (00:02→23:30)
[2017-07-31] MEDS: CEFEPIME 1,000 MG in DEXTROSE 5% WATER 50 ML IV SCH ×2 (00:11→12:06)
[2017-07-31] MEDS: DEXAMETHASONE 10 MG/ML VIAL IV SCH ×4 (00:11→17:59)
[2017-07-31] MEDS: INSULIN LISPRO 100 UNITS/ML SUBCUT SCH ×4 (00:12→17:55)
[2017-07-31] MEDS: IPRATROPIUM/ALBUTEROL 0.5-3(2.5)MG/3ML NEB HHN SCH ×4 (02:00→20:15)
[2017-07-31] MEDS: LORAZEPAM 2MG/ML CPJ IV PRN (04:40)
[2017-07-31] MEDS: METRONIDAZOLE 500 MG PREMIX 100 ML IV SCH ×3 (05:27→21:26)
[2017-07-31 05:32] LABS: HEMATOCRIT. 40.8 % (42.0-52.0); HEMOGLOBIN. 13.5 g/dL (14.0-18.0); MEAN CORPUSCULAR HEMOGLOBIN 27.6 pg (28.0-32.0); MEAN CORPUSCULAR VOLUME 83.7 fL (80.0-94.0); PLATELET 211 x1000/uL (130-400); RED BLOOD CELL COUNT 4.87 mill/uL (4.7-6.1); RED CELL DISTRIBUTION WIDTH 18.7 % (11.6-14.6)
[2017-07-31 06:01] LABS: CARBON DIOXIDE 24 mEq/L (21-32); CHLORIDE 101 mEq/L (98-107)
[2017-07-31] MEDS: FAMOTIDINE 20MG/2ML VIAL IV SCH ×2 (08:41→20:27)
[2017-07-31] MEDS: AMLODIPINE 5MG TABLET PO SCH (08:41)
[2017-07-31 09:05] LABS: PLATELET ESTIMATE NORMAL
[2017-07-31] MEDS: ACETAMINOPHEN 650MG/20.3ML UDC PO PRN (11:27)
[2017-07-31] MEDS: MORPHINE SULFATE 4 MG/ML CPJ (NOT FOR IM USE) IV PRN ×2 (11:30→21:27)
[2017-07-31] MEDS: PHENYTOIN SODIUM 300 MG in SODIUM CHLORIDE 0.9% 100 ML IV SCH (21:26)
[2017-08-01] VITALS (38 sets, daily range): BP systolic 108–154; BP diastolic 64–97
[2017-08-01] MEDS: CEFEPIME 1,000 MG in DEXTROSE 5% WATER 50 ML IV SCH ×2 (00:12→13:01)
[2017-08-01] MEDS: DEXAMETHASONE 10 MG/ML VIAL IV SCH ×4 (00:12→17:18)
[2017-08-01] MEDS: INSULIN LISPRO 100 UNITS/ML SUBCUT SCH ×4 (00:13→17:19)
[2017-08-01] MEDS: IPRATROPIUM/ALBUTEROL 0.5-3(2.5)MG/3ML NEB HHN SCH ×4 (02:36→20:40)
[2017-08-01] MEDS: MORPHINE SULFATE 4 MG/ML CPJ (NOT FOR IM USE) IV PRN ×3 (04:37→13:20)
[2017-08-01 04:58] LABS: HEMATOCRIT. 42.3 % (42.0-52.0); HEMOGLOBIN. 13.8 g/dL (14.0-18.0); MEAN CORPUSCULAR HEMOGLOBIN 27.4 pg (28.0-32.0); MEAN CORPUSCULAR VOLUME 83.8 fL (80.0-94.0); MEAN PLATELET VOLUME 7.8 fl (7.4-10.4); PLATELET 196 x1000/uL (130-400); RED BLOOD CELL COUNT 5.05 mill/uL (4.7-6.1); RED CELL DISTRIBUTION WIDTH 18.7 % (11.6-14.6)
[2017-08-01 05:05] LABS: CARBON DIOXIDE 26 mEq/L (21-32); CHLORIDE 104 mEq/L (98-107)
[2017-08-01] MEDS: BLOOD SUGAR DIAGNOSTIC STRIP TEST SCH ×3 (05:29→18:00)
[2017-08-01] MEDS: METRONIDAZOLE 500 MG PREMIX 100 ML IV SCH ×3 (05:31→21:49)
[2017-08-01 08:53] LABS: BG BASE EXCESS 0.9 mmol/L (-2.0-2.0); BG CARBOXYHEMOGLOBIN 0.2 % (0.5-1.5); BG DEOXYHEMOGLOBIN 2.1 % (0.0-5.0); BG FRACTION INSPIRED OXYGEN 28; BG HCO3 ACT 25.8 mmol/L (22.0-26.0); BG METHEMOGLOBIN 0.2 % (0.0-1.5); BG OXYGEN SATURATION 97.9 % (92.0-98.5); BG OXYHEMOGLOBIN 97.5 % (94.0-97.0); BG PCO2 41.9 mmHg (35.0-45.0); BG PH 7.407 (7.350-7.450); BG PO2 109.4 mmHg (75.0-100.0); BG PRESSURE SUPPORT 8; BG SAMPLE SITE LEFT RADIAL; BG TIDAL VOLUME(mL) 500 mL; BG TOTAL HEMOGLOBIN 14.4 g/dL (12.0-18.0); BG VENT MODE VENT - SIMV; BG VENT RATE 6 set
[2017-08-01] MEDS: FAMOTIDINE 20MG/2ML VIAL IV SCH ×2 (09:33→20:45)
[2017-08-01] MEDS: AMLODIPINE 2.5MG TABLET NG SCH (09:33)
[2017-08-01 10:10] LABS: PLATELET ESTIMATE NORMAL
[2017-08-01 12:55] LABS: BG BASE EXCESS 3.1 mmol/L (-2.0-2.0); BG CARBOXYHEMOGLOBIN 0.2 % (0.5-1.5); BG DEOXYHEMOGLOBIN 1.7 % (0.0-5.0); BG FRACTION INSPIRED OXYGEN 28; BG HCO3 ACT 27.6 mmol/L (22.0-26.0); BG METHEMOGLOBIN 0.2 % (0.0-1.5); BG OXYGEN SATURATION 98.3 % (92.0-98.5); BG OXYHEMOGLOBIN 97.9 % (94.0-97.0); BG PCO2 41.5 mmHg (35.0-45.0); BG PO2 119.6 mmHg (75.0-100.0); BG PRESSURE SUPPORT 6; BG SAMPLE SITE LEFT RADIAL; BG TOTAL HEMOGLOBIN 14.7 g/dL (12.0-18.0); BG VENT MODE VENT - CPAP
[2017-08-01] MEDS: IPRATROPIUM/ALBUTEROL 0.5-3(2.5)MG/3ML NEB HHN PRN (14:45)
[2017-08-01] MEDS: ACETAMINOPHEN 650MG/20.3ML UDC PO PRN (17:23)
[2017-08-01] MEDS: PHENYTOIN 100 MG/4 ML UDC NG SCH (20:46)
[2017-08-01] MEDS ORDERED: INSULIN DETEMIR UD 100 UNITS/ML SYR SUBCUT SCH (22:00)
[2017-08-02] VITALS (27 sets, daily range): BP systolic 110–157; BP diastolic 65–95
[2017-08-02] MEDS: INSULIN LISPRO 100 UNITS/ML SUBCUT SCH ×4 (00:35→18:04)
[2017-08-02] MEDS: BLOOD SUGAR DIAGNOSTIC STRIP TEST SCH ×4 (00:36→18:00)
[2017-08-02] MEDS: CEFEPIME 1,000 MG in DEXTROSE 5% WATER 50 ML IV SCH ×2 (00:36→13:07)
[2017-08-02] MEDS: IPRATROPIUM/ALBUTEROL 0.5-3(2.5)MG/3ML NEB HHN SCH ×4 (02:09→20:48)
[2017-08-02] MEDS: METOCLOPRAMIDE HCL 10MG/2ML VIAL IV SCH ×3 (04:50→08:26)
[2017-08-02] MEDS: METRONIDAZOLE 500 MG PREMIX 100 ML IV SCH ×3 (05:17→21:33)
[2017-08-02] MEDS: SODIUM CHLORIDE 0.9% 1,000 ML IV SCH ×2 (05:18→21:32)
[2017-08-02 05:37] LABS: HEMATOCRIT. 44.7 % (42.0-52.0); HEMOGLOBIN. 14.8 g/dL (14.0-18.0); MEAN CORPUSCULAR HEMOGLOBIN 27.6 pg (28.0-32.0); MEAN CORPUSCULAR VOLUME 83.7 fL (80.0-94.0); MEAN PLATELET VOLUME 7.7 fl (7.4-10.4); PLATELET 176 x1000/uL (130-400); RED BLOOD CELL COUNT 5.34 mill/uL (4.7-6.1); RED CELL DISTRIBUTION WIDTH 18.2 % (11.6-14.6)
[2017-08-02 05:49] LABS: INR 1.1; PARTIAL THROMBOPLASTIN TIME 25.5 sec (23.4-31.0); PROTHROMBIN TIME 11.8 sec (9.4-11.6)
[2017-08-02 06:06] LABS: CARBON DIOXIDE 29 mEq/L (21-32); CHLORIDE 103 mEq/L (98-107)
[2017-08-02 07:56] LABS: PLATELET ESTIMATE NORMAL
[2017-08-02] MEDS: MORPHINE SULFATE 4 MG/ML CPJ (NOT FOR IM USE) IV PRN ×2 (08:00→15:08)
[2017-08-02] MEDS ORDERED: DEXAMETHASONE 4MG/ML 1ML VIAL IV SCH (09:00)
[2017-08-02] MEDS: FAMOTIDINE 20MG/2ML VIAL IV SCH ×2 (09:26→20:04)
[2017-08-02] MEDS ORDERED: FENTANYL CITRATE/PF 50MCG/ML 2ML VIAL ONE (09:42)
[2017-08-02] MEDS ORDERED: MIDAZOLAM HCL 5 MG/5 ML VIAL ONE (09:42)
[2017-08-02] MEDS ORDERED: FENTANYL CITRATE/PF 50MCG/ML 2ML VIAL IV PRN (11:59)
[2017-08-02] MEDS ORDERED: MIDAZOLAM HCL 2 MG/2 ML VIAL IV PRN (11:59)
[2017-08-02] MEDS ORDERED: SODIUM CHLORIDE 0.9% 10ML VIAL ONE (14:34)
[2017-08-02] MEDS ORDERED: SIMETHICONE 40 MG/0.6 ML 30ML ONE (14:34)
[2017-08-02] MEDS: DEXAMETHASONE 4MG/ML 1ML VIAL IV SCH (17:55)
[2017-08-02] MEDS: AMLODIPINE 2.5MG TABLET NG SCH (18:03)
[2017-08-02] MEDS: PHENYTOIN 100 MG/4 ML UDC NG SCH (20:04)
[2017-08-03] VITALS (46 sets, daily range): BP systolic 112–166; BP diastolic 59–99
[2017-08-03] MEDS: BLOOD SUGAR DIAGNOSTIC STRIP TEST SCH ×4 (00:29→18:24)
[2017-08-03] MEDS: INSULIN LISPRO 100 UNITS/ML SUBCUT SCH ×4 (00:29→18:20)
[2017-08-03] MEDS: CEFEPIME 1,000 MG in DEXTROSE 5% WATER 50 ML IV SCH ×2 (00:29→12:30)
[2017-08-03] MEDS: IPRATROPIUM/ALBUTEROL 0.5-3(2.5)MG/3ML NEB HHN SCH ×4 (02:00→20:46)
[2017-08-03 06:16] LABS: HEMOGLOBIN. 13.7 g/dL (14.0-18.0); MEAN CORPUSCULAR HEMOGLOBIN 27.5 pg (28.0-32.0); MEAN CORPUSCULAR VOLUME 84.1 fL (80.0-94.0); MEAN PLATELET VOLUME 7.8 fl (7.4-10.4); PLATELET 159 x1000/uL (130-400); RED BLOOD CELL COUNT 4.99 mill/uL (4.7-6.1); RED CELL DISTRIBUTION WIDTH 18.6 % (11.6-14.6)
[2017-08-03 06:25] LABS: CARBON DIOXIDE 26 mEq/L (21-32); CHLORIDE 105 mEq/L (98-107)
[2017-08-03] MEDS: METRONIDAZOLE 500 MG PREMIX 100 ML IV SCH (06:29)
[2017-08-03] MEDS: AMLODIPINE 2.5MG TABLET NG SCH ×2 (09:00→16:54)
[2017-08-03 09:13] LABS: INR 1.2; PARTIAL THROMBOPLASTIN TIME 27.3 sec (23.4-31.0); PROTHROMBIN TIME 12.8 sec (9.4-11.6)
[2017-08-03 09:20] LABS: BG CARBOXYHEMOGLOBIN 0.8 % (0.5-1.5); BG DEOXYHEMOGLOBIN 1.6 % (0.0-5.0); BG FRACTION INSPIRED OXYGEN 28; BG HCO3 ACT 28.4 mmol/L (22.0-26.0); BG METHEMOGLOBIN 0.3 % (0.0-1.5); BG OXYGEN SATURATION 98.4 % (92.0-98.5); BG OXYHEMOGLOBIN 97.3 % (94.0-97.0); BG PCO2 41.9 mmHg (35.0-45.0); BG PH 7.449 (7.350-7.450); BG PO2 116.4 mmHg (75.0-100.0); BG PRESSURE SUPPORT 8; BG SAMPLE SITE RIGHT BRACHIAL; BG TIDAL VOLUME(mL) 500 mL; BG TOTAL HEMOGLOBIN 14.5 g/dL (12.0-18.0); BG VENT MODE VENT - SIMV; BG VENT RATE 6 set
[2017-08-03] MEDS: FAMOTIDINE 20MG/2ML VIAL IV SCH ×2 (09:37→20:47)
[2017-08-03] MEDS: DEXAMETHASONE 4MG/ML 1ML VIAL IV SCH ×2 (09:38→16:54)
[2017-08-03 11:45] LABS: PLATELET ESTIMATE NORMAL
[2017-08-03] MEDS: SODIUM CHLORIDE 0.9% 1,000 ML IV SCH ×2 (12:33→20:47)
[2017-08-03] MEDS: LORAZEPAM 2MG/ML CPJ IV PRN (16:54)
[2017-08-03] MEDS: MORPHINE SULFATE 4 MG/ML CPJ (NOT FOR IM USE) IV PRN (16:55)
[2017-08-03] MEDS: PHENYTOIN 100 MG/4 ML UDC NG SCH (20:47)
[2017-08-04] VITALS (29 sets, daily range): BP systolic 107–165; BP diastolic 56–89
[2017-08-04] MEDS: HYDRALAZINE 20MG/ML VIAL IV PRN
[2017-08-04] MEDS: INSULIN LISPRO 100 UNITS/ML SUBCUT SCH ×5 (00:13→17:38)
[2017-08-04] MEDS: CEFEPIME 1,000 MG in DEXTROSE 5% WATER 50 ML IV SCH ×2 (00:15→16:18)
[2017-08-04] MEDS: BLOOD SUGAR DIAGNOSTIC STRIP TEST SCH ×4 (00:16→17:15)
[2017-08-04] MEDS: IPRATROPIUM/ALBUTEROL 0.5-3(2.5)MG/3ML NEB HHN SCH ×4 (01:49→20:48)
[2017-08-04 08:07] LABS: BG BASE EXCESS 0.8 mmol/L (-2.0-2.0); BG FRACTION INSPIRED OXYGEN 28; BG PCO2 34.4 mmHg (35.0-45.0); BG PH 7.462 (7.350-7.450); BG PO2 88.2 mmHg (75.0-100.0); BG PRESSURE SUPPORT 8; BG SAMPLE SITE RIGHT RADIAL; BG TIDAL VOLUME(mL) 500 mL; BG VENT MODE VENT - SIMV; BG VENT RATE 6 set
[2017-08-04] MEDS: DEXAMETHASONE 4MG/ML 1ML VIAL IV SCH ×2 (08:52→16:28)
[2017-08-04] MEDS: FAMOTIDINE 20MG/2ML VIAL IV SCH ×2 (08:52→20:12)
[2017-08-04] MEDS: AMLODIPINE 2.5MG TABLET NG SCH (08:53)
[2017-08-04] MEDS: ACETAMINOPHEN 650MG/20.3ML UDC PO PRN (08:53)
[2017-08-04] MEDS: SODIUM CHLORIDE 0.9% 1,000 ML IV SCH (10:05)
[2017-08-04] MEDS ORDERED: SORBITOL 70% SOLN 30ML PO NR ×2 (13:00→18:00)
[2017-08-04] MEDS ORDERED: PHENYTOIN SODIUM 800 MG in SODIUM CHLORIDE 0.9% 100 ML IV NR (17:00)
[2017-08-04] MEDS: DOCUSATE SODIUM SUGAR FREE 100MG/10ML UDC GT SCH (17:32)
[2017-08-04] MEDS: PHENYTOIN 100 MG/4 ML UDC NG SCH (20:12)
[2017-08-05] VITALS (12 sets, daily range): BP systolic 113–133; BP diastolic 60–72
[2017-08-05] MEDS: INSULIN LISPRO 100 UNITS/ML SUBCUT SCH ×5 (00:22→23:18)
[2017-08-05] MEDS: CEFEPIME 1,000 MG in DEXTROSE 5% WATER 50 ML IV SCH ×2 (00:31→12:46)
[2017-08-05] MEDS: ONDANSETRON HCL 4MG/2ML VIAL IV PRN ×2 (01:28→23:02)
[2017-08-05] MEDS: IPRATROPIUM/ALBUTEROL 0.5-3(2.5)MG/3ML NEB HHN SCH ×4 (02:35→20:55)
[2017-08-05] MEDS: SODIUM CHLORIDE 0.9% 1,000 ML IV SCH (05:38)
[2017-08-05] MEDS: BLOOD SUGAR DIAGNOSTIC STRIP TEST SCH ×5 (06:00→23:19)
[2017-08-05 06:02] LABS: BASOPHILS % 0.3 % (0.0-2.0); EOSINOPHILS % 1.5 % (0.0-5.0); HEMATOCRIT. 37.2 % (42.0-52.0); HEMOGLOBIN. 12.2 g/dL (14.0-18.0); LYMPHOCYTES % 9.7 % (20.0-50.0); MEAN CORPUSCULAR HEMOGLOBIN 27.5 pg (28.0-32.0); MEAN CORPUSCULAR VOLUME 84.1 fL (80.0-94.0); MEAN PLATELET VOLUME 7.3 fl (7.4-10.4); MONOCYTES % 14.4 % (2.0-8.0); NEUTROPHILS % 74.1 % (40.0-76.0); PLATELET 158 x1000/uL (130-400); RED BLOOD CELL COUNT 4.43 mill/uL (4.7-6.1); RED CELL DISTRIBUTION WIDTH 18.5 % (11.6-14.6)
[2017-08-05 06:52] LABS: CARBON DIOXIDE 28 mEq/L (21-32); CHLORIDE 105 mEq/L (98-107)
[2017-08-05] MEDS ORDERED: POTASSIUM CHLORIDE INJ 40 MEQ in DEXT 5% WATER 250 ML IV SCH (09:00)
[2017-08-05] MEDS: AMLODIPINE 2.5MG TABLET NG SCH (09:11)
[2017-08-05] MEDS: DOCUSATE SODIUM SUGAR FREE 100MG/10ML UDC GT SCH ×2 (09:11→18:14)
[2017-08-05] MEDS ORDERED: FUROSEMIDE 40MG/4ML VIAL IVP NR (10:15)
[2017-08-05] MEDS: FAMOTIDINE 20MG/2ML VIAL IV SCH ×2 (10:51→21:02)
[2017-08-05] MEDS: ACETAMINOPHEN 650MG/20.3ML UDC PO PRN ×2 (12:56→23:02)
[2017-08-05] MEDS: PHENYTOIN 100 MG/4 ML UDC NG SCH (21:02)
[2017-08-06] VITALS (12 sets, daily range): BP systolic 109–148; BP diastolic 60–92
[2017-08-06] MEDS: CEFEPIME 1,000 MG in DEXTROSE 5% WATER 50 ML IV SCH ×2 (00:32→12:57)
[2017-08-06] MEDS: IPRATROPIUM/ALBUTEROL 0.5-3(2.5)MG/3ML NEB HHN SCH ×4 (01:40→20:03)
[2017-08-06] MEDS: INSULIN LISPRO 100 UNITS/ML SUBCUT SCH ×3 (05:57→19:46)
[2017-08-06] MEDS: BLOOD SUGAR DIAGNOSTIC STRIP TEST SCH ×3 (05:57→18:23)
[2017-08-06 10:14] LABS: BASOPHILS % 0.3 % (0.0-2.0); EOSINOPHILS % 3.3 % (0.0-5.0); HEMOGLOBIN. 12.7 g/dL (14.0-18.0); LYMPHOCYTES % 10.2 % (20.0-50.0); MEAN CORPUSCULAR HEMOGLOBIN 27.4 pg (28.0-32.0); MEAN PLATELET VOLUME 7.3 fl (7.4-10.4); MONOCYTES % 12.6 % (2.0-8.0); NEUTROPHILS % 73.6 % (40.0-76.0); PLATELET 170 x1000/uL (130-400); RED BLOOD CELL COUNT 4.64 mill/uL (4.7-6.1); RED CELL DISTRIBUTION WIDTH 18.4 % (11.6-14.6)
[2017-08-06 10:28] LABS: CHLORIDE 104 mEq/L (98-107)
[2017-08-06 10:34] LABS: CARBON DIOXIDE 32 mEq/L (21-32)
[2017-08-06] MEDS: ACETAMINOPHEN 650MG/20.3ML UDC PO PRN ×2 (10:48→18:14)
[2017-08-06] MEDS: AMLODIPINE 2.5MG TABLET NG SCH (10:49)
[2017-08-06] MEDS: DOCUSATE SODIUM SUGAR FREE 100MG/10ML UDC GT SCH ×2 (10:49→18:13)
[2017-08-06] MEDS: FAMOTIDINE 20MG/2ML VIAL IV SCH ×2 (10:49→20:20)
[2017-08-06] MEDS: PHENYTOIN 100 MG/4 ML UDC NG SCH (20:20)
[2017-08-07] VITALS (13 sets, daily range): BP systolic 99–167; BP diastolic 55–101
[2017-08-07] MEDS: INSULIN LISPRO 100 UNITS/ML SUBCUT SCH ×4 (00:19→18:15)
[2017-08-07] MEDS: CEFEPIME 1,000 MG in DEXTROSE 5% WATER 50 ML IV SCH ×2 (00:20→12:15)
[2017-08-07] MEDS: IPRATROPIUM/ALBUTEROL 0.5-3(2.5)MG/3ML NEB HHN SCH ×3 (02:13→13:32)
[2017-08-07] MEDS: BLOOD SUGAR DIAGNOSTIC STRIP TEST SCH ×4 (06:00→18:14)
[2017-08-07] MEDS: ACETAMINOPHEN 650MG/20.3ML UDC PO PRN ×2 (06:25→13:54)
[2017-08-07 08:12] LABS: BASOPHILS % 0.3 % (0.0-2.0); EOSINOPHILS % 2.7 % (0.0-5.0); HEMATOCRIT. 38.6 % (42.0-52.0); HEMOGLOBIN. 12.7 g/dL (14.0-18.0); LYMPHOCYTES % 8.5 % (20.0-50.0); MEAN CORPUSCULAR HEMOGLOBIN 27.5 pg (28.0-32.0); MEAN CORPUSCULAR VOLUME 83.5 fL (80.0-94.0); MEAN PLATELET VOLUME 7.5 fl (7.4-10.4); NEUTROPHILS % 81.5 % (40.0-76.0); PLATELET 184 x1000/uL (130-400); RED BLOOD CELL COUNT 4.62 mill/uL (4.7-6.1); RED CELL DISTRIBUTION WIDTH 18.4 % (11.6-14.6)
[2017-08-07 08:40] LABS: CARBON DIOXIDE 30 mEq/L (21-32); CHLORIDE 103 mEq/L (98-107)
[2017-08-07] MEDS: DOCUSATE SODIUM SUGAR FREE 100MG/10ML UDC GT SCH ×2 (08:41→18:14)
[2017-08-07] MEDS: AMLODIPINE 2.5MG TABLET NG SCH (08:41)
[2017-08-07] MEDS: FAMOTIDINE 20MG/2ML VIAL IV SCH (08:42)
[2017-08-07] MEDS ORDERED: LOSARTAN POTASSIUM 25 MG TABLET PO SCH (12:45)
[2017-08-07] MEDS ORDERED: ACETYLCYSTEINE 100MG/ML 10% VIAL 4ML INH SCH (14:00)
[2017-08-07] MEDS: IPRATROPIUM/ALBUTEROL 0.5-3(2.5)MG/3ML NEB HHN PRN (16:18)
== END 2017-08-07 23:14 | DRG 4 ==
LOC: ER 19:26 → 5WST 21:47 → EDBEDREQ 21:52 → ENRESERV 22:08 → 5WST 23:57 → MICUNO 07-27 02:16 → 5EST 08-04 11:50
PROVIDERS: ADMIT Internal Medicine; ATTEND Internal Medicine
PROC: 5A1955Z Respiratory Ventilation, Greater than 96 Consecutive Hours (ICD-10-PCS; principal; 2017-07-27)
PROC: 0BH17EZ Insertion of Endotracheal Airway into Trachea, Via Natural or Artificial Opening (ICD-10-PCS; 2017-07-27)
PROC: 02HV33Z Insertion of Infusion Device into Superior Vena Cava, Percutaneous Approach (ICD-10-PCS; 2017-07-30)
PROC: B548ZZA Ultrasonography of Superior Vena Cava, Guidance (ICD-10-PCS; 2017-07-30)
PROC: 0DH63UZ Insertion of Feeding Device into Stomach, Percutaneous Approach (ICD-10-PCS; 2017-08-02)
PROC: 0B110F4 Bypass Trachea to Cutaneous with Tracheostomy Device, Open Approach (ICD-10-PCS; 2017-08-03)
PROC: 0GBG0ZZ Excision of Left Thyroid Gland Lobe, Open Approach (ICD-10-PCS; 2017-08-03)
PROC: 0BJ08ZZ Inspection of Tracheobronchial Tree, Via Natural or Artificial Opening Endoscopic (ICD-10-PCS; 2017-08-03)
PROC: 02PYX3Z Removal of Infusion Device from Great Vessel, External Approach (ICD-10-PCS; 2017-08-07)
DX: A41.9 Sepsis, unspecified organism (principal); I61.9 Nontraumatic intracerebral hemorrhage, unspecified; E43 Unspecified severe protein-calorie malnutrition; G92 Toxic encephalopathy; I11.0 Hypertensive heart disease with heart failure; I50.42 Chronic combined systolic (congestive) and diastolic (congestive) heart failure; G93.89 Other specified disorders of brain; I27.2 Other secondary pulmonary hypertension; J96.00 Acute respiratory failure, unspecified whether with hypoxia or hypercapnia; E11.9 Type 2 diabetes mellitus without complications; D63.8 Anemia in other chronic diseases classified elsewhere; Z68.22 Body mass index [BMI] 22.0-22.9, adult; I82.621 Acute embolism and thrombosis of deep veins of right upper extremity; G81.91 Hemiplegia, unspecified affecting right dominant side; D72.829 Elevated white blood cell count, unspecified; E87.5 Hyperkalemia; E78.5 Hyperlipidemia, unspecified; F14.10 Cocaine abuse, uncomplicated; F15.10 Other stimulant abuse, uncomplicated; F17.200 Nicotine dependence, unspecified, uncomplicated; G81.94 Hemiplegia, unspecified affecting left nondominant side; H40.9 Unspecified glaucoma; I25.10 Atherosclerotic heart disease of native coronary artery without angina pectoris; I25.5 Ischemic cardiomyopathy; I34.0 Nonrheumatic mitral (valve) insufficiency; J44.9 Chronic obstructive pulmonary disease, unspecified; S00.412A Abrasion of left ear, initial encounter; K59.00 Constipation, unspecified; R29.810 Facial weakness; Z79.4 Long term (current) use of insulin; Z95.1 Presence of aortocoronary bypass graft; Z95.5 Presence of coronary angioplasty implant and graft; Z88.2 Allergy status to sulfonamides; I25.2 Old myocardial infarction; Z79.899 Other long term (current) drug therapy
CPT/HCPCS: 31500; 36415; 36569; 36600; 70450; 70496; 70498; 70551; 71010; 76937; 80048; 80053; 80185; 80305; 80307; 80329; 81001; 82140; 82375; 82550; 82805; 82962; 83735; 83880; 84478; 85025; 85027; 85610; 85730; 87040; 87493; 93005; 93306; 93971; 94002; 94003; 94640; 94664; 96374; 99285; A4216; A6261; C1725; G0482; J0330; J0360; J0692; J1100; J1165; J1815; J1940; J2060; J2250; J2270; J2310; J2405; J2704; J2765; J3010; J3480; J3490; J7030; J7050; J7060; J7608; J7620; Q9967; A4315

== ENCOUNTER 2018-08-05 11:46 | Inpatient (IN) | payer MEDICAID ==
[~2018-08-05] VITALS: Ht 172.7 cm; Wt 79.4 kg
[~2018-08-05 11:46] MED LIST changes: -IOHEXOL-350 100 ML BOTTLE ONE; -SODIUM CHLORIDE 0.9% 10ML VIAL ONE
[2018-08-05 12:45] LABS: EOSINOPHILS % 1.6 % (0.0-5.0); HEMATOCRIT. 44.5 % (42.0-52.0); LYMPHOCYTES % 19.2 % (20.0-50.0); MEAN CORPUSCULAR HEMOGLOBIN 30.3 pg (28.0-32.0); MEAN CORPUSCULAR VOLUME 89.8 fL (80.0-94.0); MEAN PLATELET VOLUME 9.3 fl (7.4-10.4); MONOCYTES % 11.7 % (2.0-8.0); NEUTROPHILS % 66.5 % (40.0-76.0); PLATELET 192 x1000/uL (130-400); RED BLOOD CELL COUNT 4.96 mill/uL (4.7-6.1); RED CELL DISTRIBUTION WIDTH 13.4 % (11.6-14.6)
[2018-08-05 12:50] LABS: CHLORIDE 101 mEq/L (98-107)
[2018-08-05 12:52] LABS: INR 1.1; PROTHROMBIN TIME 10.7 sec (9.1-11.1)
[2018-08-05 13:00] LABS: CREATINE KINASE 53 IU/L (39-308)
[2018-08-05] MEDS ORDERED: ONDANSETRON HCL 4MG/2ML INJ IV PRN (13:45)
[2018-08-05] MEDS ORDERED: ACETAMINOPHEN 650MG SUPP PR PRN (13:45)
[2018-08-05] MEDS ORDERED: IPRATROPIUM/ALBUTEROL 0.5-3(2.5)MG/3ML NEB INH PRN (13:45)
[2018-08-05] MEDS ORDERED: FUROSEMIDE 20MG/2ML VIAL IVP ONE (13:45)
[2018-08-05] MEDS ORDERED: DIPHENHYDRAMINE 50MG/ML VIAL IV PRN (13:45)
[2018-08-05] MEDS ORDERED: HYDRALAZINE 20MG/ML VIAL IV PRN (15:00)
[2018-08-05] MEDS ORDERED: CLONIDINE HCL 0.1MG/24HR PATCH TD SCH (15:00)
[2018-08-05 15:15] LABS: CLARITY URINE CLOUDY (CLEAR); COLOR URINE YELLOW (YELLOW); KETONES URINE NEGATIVE (NEGATIVE); LEUKOCYTE ESTERASE URINE 3+ (NEGATIVE); NITRITE URINE NEGATIVE (NEGATIVE); OCCULT BLOOD URINE 2+ (NEGATIVE); PROTEIN URINE 1+ (NEGATIVE); SPECIFIC GRAVITY URINE 1.023 (1.005-1.030); UROBILINOGEN URINE 0.2 E.U./dL (0.2-1.0)
[2018-08-05] MEDS ORDERED: IOHEXOL-300 100 ML BOTTLE ONE (16:19)
[2018-08-05 18:00] VITALS: BP 162/81
[2018-08-05] MEDS ORDERED: DEXTROSE 50% WATER 50ML SYRINGE IV PRN (18:00)
[2018-08-05] MEDS: ENOXAPARIN 80MG/0.8ML SYR SUBCUT SCH (18:59)
[2018-08-05 20:00] VITALS: BP 180/86
[2018-08-05] MEDS ORDERED: HYDRALAZINE 10 MG in SODIUM CHLORIDE 0.9% 49.5 ML IV PRN (20:00)
[2018-08-05] MEDS: DEXT 5%/0.45% NACL 1000ML 1,000 ML IV SCH (20:45)
[2018-08-05] MEDS: BLOOD SUGAR DIAGNOSTIC STRIP TEST SCH (20:45)
[2018-08-05] MEDS: INSULIN LISPRO 100 UNITS/ML SUBCUT SCH (20:48)
[2018-08-05] MEDS ORDERED: NA PHOS,M-B/NA PHOS,DI-BA ENEMA 118ML PR PRN (21:00)
[2018-08-06] VITALS: BP 150/88
[2018-08-06 04:00] VITALS: BP 159/85
[2018-08-06] MEDS: BLOOD SUGAR DIAGNOSTIC STRIP TEST SCH ×4 (05:52→21:06)
[2018-08-06] MEDS: INSULIN LISPRO 100 UNITS/ML SUBCUT SCH ×4 (05:52→21:30)
[2018-08-06] MEDS: ENOXAPARIN 80MG/0.8ML SYR SUBCUT SCH ×2 (05:56→17:09)
[2018-08-06 07:36] LABS: BASOPHILS % 1.3 % (0.0-2.0); EOSINOPHILS % 3.5 % (0.0-5.0); HEMOGLOBIN. 14.7 g/dL (14.0-18.0); LYMPHOCYTES % 30.4 % (20.0-50.0); MEAN CORPUSCULAR HEMOGLOBIN 30.6 pg (28.0-32.0); MEAN CORPUSCULAR VOLUME 89.5 fL (80.0-94.0); MEAN PLATELET VOLUME 9.4 fl (7.4-10.4); MONOCYTES % 13.7 % (2.0-8.0); NEUTROPHILS % 51.1 % (40.0-76.0); PLATELET 189 x1000/uL (130-400); RED BLOOD CELL COUNT 4.81 mill/uL (4.7-6.1); RED CELL DISTRIBUTION WIDTH 13.5 % (11.6-14.6)
[2018-08-06 08:00] VITALS: BP 141/75
[2018-08-06] MEDS: PANTOPRAZOLE SODIUM 40 MG/VIAL IV SCH (09:00)
[2018-08-06 09:07] LABS: CHLORIDE 104 mEq/L (98-107)
[2018-08-06 09:18] LABS: LDL CHOLESTEROL 143 mg/dL (5-100)
[2018-08-06 09:20] LABS: HDL CHOLESTEROL 55 mg/dL (40-59)
[2018-08-06 09:21] LABS: T4 FREE 0.95 ng/dL (0.76-1.46)
[2018-08-06] MEDS ORDERED: HYDRALAZINE 20MG/ML VIAL IV PRN (12:15)
[2018-08-06] MEDS ORDERED: BISACODYL 10MG SUPP PR SCH (12:45)
[2018-08-06] MEDS ORDERED: BISACODYL 10MG SUPP PR PRN (12:45)
[2018-08-06 12:49] VITALS: BP 138/68
[2018-08-06] MEDS ORDERED: PIPERACILLIN/TAZ 3.375G PREMIX 50 ML IV SCH (14:00)
[2018-08-06] MEDS ORDERED: CLONIDINE HCL 0.2MG/24HR PATCH TD SCH (14:00)
[2018-08-06] MEDS ORDERED: HYDRALAZINE 10 MG in SODIUM CHLORIDE 0.9% 49.5 ML IV PRN (14:00)
[2018-08-06 16:30] VITALS: BP 147/78
[2018-08-06] MEDS: DEXT 5%/0.45% NACL 1000ML 1,000 ML IV SCH (17:08)
[2018-08-06 20:00] VITALS: BP 137/76
[2018-08-06] MEDS: PIPERACILLIN/TAZ 3.375G PREMIX 50 ML IV SCH (20:58)
[2018-08-06] MEDS: ATORVASTATIN CALCIUM 10MG TABLET PO SCH (21:01)
[2018-08-07] VITALS (7 sets, daily range): BP systolic 108–157; BP diastolic 50–88
[2018-08-07] MEDS: PIPERACILLIN/TAZ 3.375G PREMIX 50 ML IV SCH ×3 (01:06→13:20)
[2018-08-07] MEDS: ENOXAPARIN 80MG/0.8ML SYR SUBCUT SCH ×2 (06:08→17:22)
[2018-08-07] MEDS: INSULIN LISPRO 100 UNITS/ML SUBCUT SCH ×4 (06:12→21:24)
[2018-08-07] MEDS: BLOOD SUGAR DIAGNOSTIC STRIP TEST SCH ×4 (06:12→21:13)
[2018-08-07 08:39] LABS: BASOPHILS % 0.8 % (0.0-2.0); EOSINOPHILS % 4.3 % (0.0-5.0); HEMATOCRIT. 42.6 % (42.0-52.0); HEMOGLOBIN. 14.5 g/dL (14.0-18.0); MEAN CORPUSCULAR HEMOGLOBIN 30.6 pg (28.0-32.0); MEAN CORPUSCULAR VOLUME 89.7 fL (80.0-94.0); MEAN PLATELET VOLUME 9.8 fl (7.4-10.4); MONOCYTES % 13.6 % (2.0-8.0); NEUTROPHILS % 58.3 % (40.0-76.0); PLATELET 181 x1000/uL (130-400); RED BLOOD CELL COUNT 4.75 mill/uL (4.7-6.1); RED CELL DISTRIBUTION WIDTH 13.2 % (11.6-14.6)
[2018-08-07] MEDS: PANTOPRAZOLE SODIUM 40 MG/VIAL IV SCH (09:11)
[2018-08-07] MEDS: DEXT 5%/0.45% NACL 1000ML 1,000 ML IV SCH (09:12)
[2018-08-07 10:47] LABS: CHLORIDE 106 mEq/L (98-107)
[2018-08-07] MEDS ORDERED: INSULIN GLARGINE UD 100 UNITS/ML SYR SUBCUT SCH (12:30)
[2018-08-07] MEDS ORDERED: CEPHALEXIN 500MG CAPSULE PO SCH (15:00)
[2018-08-07] MEDS: ATORVASTATIN CALCIUM 10MG TABLET PO SCH (21:13)
[2018-08-08] MEDS ORDERED: PANTOPRAZOLE 40MG DR TABLET PO SCH (07:10)
== END 2018-08-07 22:55 | DRG 252 ==
LOC: ER 11:46 → 8WST 12:22 → EDBEDREQ 12:24 → EDBEDREQTM 12:24 → ENRESERV 12:50 → CANRESERV 12:50 → SUPCPDRO 13:08 → EDBEDREQSVC 14:57 → ENRESERV 15:24 → 8WST 17:51
PROVIDERS: ADMIT Internal Medicine; ATTEND Family Medicine
DX: K94.29 Other complications of gastrostomy (principal); I50.43 Acute on chronic combined systolic (congestive) and diastolic (congestive) heart failure; I27.20 Pulmonary hypertension, unspecified; I82.412 Acute embolism and thrombosis of left femoral vein; Z93.0 Tracheostomy status; D68.59 Other primary thrombophilia; E11.65 Type 2 diabetes mellitus with hyperglycemia; I69.354 Hemiplegia and hemiparesis following cerebral infarction affecting left non-dominant side; I42.0 Dilated cardiomyopathy; F03.90 Unspecified dementia, unspecified severity, without behavioral disturbance, psychotic disturbance, mood disturbance, and anxiety; E78.5 Hyperlipidemia, unspecified; I25.10 Atherosclerotic heart disease of native coronary artery without angina pectoris; I25.5 Ischemic cardiomyopathy; I11.0 Hypertensive heart disease with heart failure; R13.10 Dysphagia, unspecified; J44.9 Chronic obstructive pulmonary disease, unspecified; N39.0 Urinary tract infection, site not specified; B95.1 Streptococcus, group B, as the cause of diseases classified elsewhere; Y83.3 Surgical operation with formation of external stoma as the cause of abnormal reaction of the patient, or of later complication, without mention of misadventure at the time of the procedure; Y92.89 Other specified places as the place of occurrence of the external cause; Z95.1 Presence of aortocoronary bypass graft; I25.2 Old myocardial infarction; I69.391 Dysphagia following cerebral infarction; Z95.5 Presence of coronary angioplasty implant and graft; Z79.01 Long term (current) use of anticoagulants; Z79.899 Other long term (current) drug therapy; Z88.2 Allergy status to sulfonamides
CPT/HCPCS: 36415; 51702; 70450; 71045; 74177; 80053; 80061; 81003; 82550; 82553; 82962; 83036; 83690; 83735; 83880; 84439; 84443; 84484; 85025; 85610; 87040; 87077; 87086; 92610; 93005; 93306; 93970; 96374; 99285; C1893; C9113; J1650; J1815; J1940; J2543; Q9967; A4315